=== PATIENT | male | born 1955 | race Caucasian/White ===

== ENCOUNTER 2022-10-17 07:28 | Outpatient (CLI) | payer MEDICARE, SELFPAY ==
--- NOTE | 2022-10-24 15:07 | WPDSLEEPSTUD ---
Sleep Study Date of Study: 10/17/22 Ordering Provider: Jacinda Badillo MD Interpreting Physician: Delores Gant MD Sleep Study Type: Split Polysomnogram Height: 1.85 m Weight: 113.398 kg Body Mass Index: 33.0 Neck Circumference (inches): 20.5 [place]: 6 Reason for Sleep Study Snoring O2 saturation on waking was 79% he has awakened choking. He had a sleep study years ago, had obstructive sleep apnea but was never treated. Sleep History Kip Gordon is a 67-year-old man with complaints of loud snoring. He had a sleep study 20 years ago, had sleep apnea however never started therapy. He rarely awakens from sleep feeling short of breath. He occasionally awakens at night with heartburn, belching or coughing. His snoring is always loud enough that others complain about. He rarely has trouble sleeping with a cold. He occasionally wakes up gasping for breath at night. He does not sweat excessively at night or notice his heart pounding or beating irregularly at night. He does not fall asleep during the day, does not fall asleep involuntarily or while driving. He does not have loss of muscle tone with strong emotion. He does not have daytime difficulties due to excessive sleepiness. He is retired. He does not feel paralyzed on waking or falling asleep. he occasionally has vivid dreamlike scenes on waking or falling asleep. He sent afraid to go to sleep. He does not have nightmares. He occasionally remembers his dreams. Occasionally has racing thoughts. He occasionally feels sad or depressed. He rarely feels anxious. He occasionally has muscular tension. He does not notice parts of his body jerking. Does not kick at night or have crawling or aching feelings in his legs. Rarely has any kind of leg pain at night. He does not have morning jaw pain. He does not grind his teeth during sleep. He frequently is bothered by pain during the day and awakened by pain at night. He occasionally wakes up feeling stiff in the morning with sore achy muscles. He rarely wakes up with pain in the neck and spine. He does not have a fixed bedtime. He goes to bed whenever he is ready to go to bed. It takes him 10 minutes fall asleep. He wakes up during the night but the number of times is variable. He may let the dog out go to the bathroom. It takes him 10 minutes to fall asleep again. He wakes up between 7 and 7:30 a.m.. He estimates getting 6 hours of sleep at night. His weekend schedule is the same. After waking he may go sleep in the chair. He takes naps in the afternoon or evening. A short nap lasting 10 or 15 minutes may be refreshing. He feels better in the afternoon compared to other times of day. Habits: Never smoked tobacco. Caffeine 4-12 oz a day. No alcohol or recreational substances. [facility] Family History Family History (Updated 06/04/16 @ 16:44 by DOCTOR UNKNOWN) Father Family history of malignant neoplasm Family history of malignant neoplasm of stomach Mother Cerebrovascular accident Sibling Family history of coronary artery disease Family history of malignant neoplasm of breast in first degree relative Social History Social History Smoking status: Never smoker Alcohol intake: never Comments Past Medical History Hypertension Chronic shoulder pain CAD, non-ST elevation myocardial infarction 2017, 1 stent Diabetes mellitus without complication Arthritis asbestos exposure benign prostatic hypertrophy GERD Hyperlipidemia Medications Medications: metformin 1000 mg Q day glipizide 10 mg Q day lisinopril 10 mg a day atorvastatin 80 mg a day metoprolol 25 mg a day Sleep Procedure This test was performed using the [employer] multiple channel system including EOG, EEG, submental EMG, EKG, nasal and oral airflow using thermistors and nasal pressure sensors, chest and abdominal belts for body position data, and pulse oximetry. Video monitoring was also performed. The study was
[2022-10-24 17:54] VITALS: BMI 33.0
== END 2022-10-17 13:26 | disposition home or self-care (01) ==
LOC: ANHCSM 10-29 07:28
PROVIDERS: PCP Family Medicine; Visit Provider Internal Medicine Cardiovascular Disease
DX: G47.33 Obstructive sleep apnea (adult) (pediatric) (principal); Z68.33 Body mass index [BMI] 33.0-33.9, adult
CPT/HCPCS: 95811